=== PATIENT | male | born 1975 | race Two or more races ===

== ENCOUNTER 2020-12-29 09:12 | Emergency (ER) | payer OTHER ==
[~2020-12-29] VITALS: Ht 170.2 cm; Wt 76.2 kg
[2020-12-29] MEDS ORDERED: PREVACID30 M1 PO (10:08)
[2020-12-29] MEDS ORDERED: TUSSI PRES-B L480 ML PO (13:08)
[2020-12-29] MEDS ORDERED: AMOX-CLAV 875-1 EACH PO (13:08)
[2020-12-29] MEDS ORDERED: ZITHROMAX500 MG PO (13:59)
== END 2020-12-29 14:02 | disposition home or self-care (01) ==
LOC: ER 09:12
DX: B34.9 Viral infection, unspecified (principal); B96.0 Mycoplasma pneumoniae [M. pneumoniae] as the cause of diseases classified elsewhere